=== PATIENT | female | born 1950 | race Caucasian/White ===

== ENCOUNTER 2019-02-21 11:15 | Emergency (ER) | payer BC, MEDICAID, MEDICARE ==
[~2019-02-21] VITALS: Ht 165.1 cm; Wt 77.1 kg
[2019-02-21 11:25] VITALS: BP 143/66
[2019-02-21] MEDS ORDERED: KETOROLAC TROMETH 60MG/2ML VIAL IM ONE (12:30)
== END 2019-02-21 12:49 | disposition home or self-care (01) ==
LOC: ER 11:15
DX: M75.92 Shoulder lesion, unspecified, left shoulder (principal); E78.5 Hyperlipidemia, unspecified; I10 Essential (primary) hypertension; F17.210 Nicotine dependence, cigarettes, uncomplicated; Z88.0 Allergy status to penicillin; Z88.6 Allergy status to analgesic agent
CPT/HCPCS: 73030; 96372; 99283; J1885